=== PATIENT | female | born 1985 | race Caucasian/White ===

== ENCOUNTER 2022-08-29 17:14 | Outpatient (CLI) | payer OTHER, SELFPAY ==
[2022-08-29 13:55] LABS: Cholesterol* 204 mg/dL (90-199); Glucose* 95 mg/dL (60-115); HDL Cholesterol* 55 mg/dL (>=50); LDL Cholesterol Calculated 134 mg/dL (<100); Triglycerides* 73 mg/dL (40-149)
== END 2022-08-29 17:15 | disposition home or self-care (01) ==
PROVIDERS: PCP Physician Assistant Medical; Visit Provider Emergency Medicine
DX: Z13.1 Encounter for screening for diabetes mellitus (principal); Z13.6 Encounter for screening for cardiovascular disorders
CPT/HCPCS: 80061; 82947

== ENCOUNTER 2024-05-24 08:42 | Outpatient (CLI) | payer OTHER, SELFPAY | END 2024-05-24 08:43 | disposition home or self-care (01) | PROVIDERS: PCP Family Medicine; Visit Provider Family Medicine | DX: Z13.220 Encounter for screening for lipoid disorders (principal); Z13.228 Encounter for screening for other metabolic disorders; Z11.59 Encounter for screening for other viral diseases | CPT/HCPCS: 80053; 80061; 86803 ==

== ENCOUNTER 2024-08-31 07:57 | Outpatient (CLI) | payer OTHER, SELFPAY | END 2024-08-31 07:58 | disposition home or self-care (01) | LOC: MAMMO 07:58 | PROVIDERS: PCP Family Medicine; Visit Provider Family Medicine | DX: Z12.31 Encounter for screening mammogram for malignant neoplasm of breast (principal); R92.333 Mammographic heterogeneous density, bilateral breasts | CPT/HCPCS: 77063; 77067 ==

== ENCOUNTER 2025-04-18 15:30 | Outpatient (RCR) | payer OTHER, SELFPAY ==
--- NOTE | 2025-04-13 16:05 | PT.OPDN ---
PT [place] [facility] Daily Note PT [facility] Daily Note Start: 03/14/25 12:39 Freq: Status: Active Protocol: Document 04/13/25 15:21 CJT (Rec: 04/13/25 16:04 CJT [email or web address]) E-signed By Carroll Larson, PT PT OP Daily Progress Note Visit Information Note Type Recert/Progress Note Visit Number [id number] Physician Authorized eval and treat Visits Insurance Information Recert Due Date 06/12/25 Insurance Name [employer] Medical Diagnosis chronic neck pain Treating Diagnosis M54.2 - Cervicalgia Imaging Report X-Ray - Cervical Spine - 03/13/25 Information Mild disc space narrowing and spurring C5-6. No fracture. Facet joints normal. Lung apices clear. Referring MD Waite, [place] CASTRO; PCP: Luis Mccollum Subjective Preferred Name Sherley Subjective Pt reports she was super sore following last treatment session. Continues to rate overall improvement as 30%. Pain Comments Worst: -03/29 Average: 5-12/27 Right now: Home Exercise Home Exercise Access Code: [email or web address] Comments URL: [email or web address] Date: 03/14/2025 Prepared by: Carroll Larson Exercises - Supine Chin Tuck - 1 x daily - 7 x weekly - 2 sets - 10 reps - 3 seconds hold - Sidelying Cervical Sidebending - 1 x daily - 7 x weekly - 2 sets - 10 reps - Seated Cervical Sidebending Stretch - 1-2 x daily - 7 x weekly - 1 sets - 30 seconds hold - Doorway Pec Stretch at 90 Degrees Abduction - 1-2 x daily - 7 x weekly - 1 sets - 30 seconds hold - Shoulder Internal Rotation with Resistance - 1 x daily - 2 x weekly - 2 sets - 20 reps - Shoulder External Rotation with Anchored Resistance - 1 x daily - 2 x weekly - 2 sets - 20 reps Objective Other/Pertinent Cervical AROM Objective R/L Side Bend - R/L Rotation - 51/65 Functional Test NDI - 32% disability Performed & Score Patient Instructed Yes in Risks/Benefits Therapeutic Exercise Therapeutic Exercise 10 Minutes (minutes) Therapeutic Exercise Seated cervical rotation mobilizations with towel 2 x : To Restore 10 ea, 3 hold Functional Status Seated cervical side bending mobilizations with towel 2 x 10 ea, 3 hold Manual Therapy Techniques Manual Therapy 28 Minutes (minutes) Manual Therapy STM performed to Bilateral suboccipitals, cervical Techniques paraspinals, scalenes, SCM, upper trapezius, levator scapulae, pectoralis minor, pectoralis major to reduce tissue tension and improve extensibility. Gentle manual distraction to further reduce tissue tension. Treatment Minutes Timed Code Treatment 38 Minutes Total Treatment Time 38 Billing Units Manual Therapy Units 2 Mechanical Traction 1 Units Assessment/Impression Assessment/ Sherley has failed to make adequate progress up to this Impression point. She rates her overall improvement in her symptoms as 30% at this time. She has had periods of excellent improvement in her cervical AROM, but this is usually short lived, and measured following mobilizations to the cervical spine. I do think exploring other options would be in Sherley's best interest at this point, including MRI of the cervical spine nad potential consult for injection if necessary. I would like to see Sherley for several follow-ups sessions to attempt dry needling of the upper trapezius bilaterally and follow-up on new exercises. Recommend continued PT services to address deficits and return pt to highest level of function. Primary Functional turning head, looking up/down, sleeping Limitations Plan of Care Physical Therapy STG - To be completed in 2-3 weeks: Goals 1. Pt will demonstrate improved cervical strength to 5/ 5 MMT in all directions to provide greater support to cervical spine and head. 2. Pt will report reduction in neck pain by factor of 2 so that they may roll over in bed without waking due to pain. 3. Pt will demo 5/5 MMT for empty can testing bilaterally without pain as indication of reduced RTC impingement. LTG - To be completed in 6-8 weeks: 1. Pt to be I with HEP so that they may I manage progression of symptoms. 2. Pt will demo full and pain free cervical rotation ROM and lateral flexion ROM so that they may look over shoulder while driving to watch for traffic. 3. Pt will report absence of neck pain with all activities so that they may return to participating in recreational activities with their friends and family. 4. Pt will report ability to sleep throughout the night without waking due to pain so that they may wake well rested with reduced mental fatigue during working hours . Daily Plan of Care Continue per POC
== END 2025-06-27 08:58 | disposition home or self-care (01) ==
PROVIDERS: PCP Family Medicine; Visit Provider Family Medicine
DX: M54.2 Cervicalgia (principal); G89.29 Other chronic pain; Z51.89 Encounter for other specified aftercare
CPT/HCPCS: 97012; 97110; 97140; 97161

== ENCOUNTER 2025-05-01 17:56 | Outpatient (CLI) | payer OTHER, SELFPAY ==
--- NOTE | 2025-05-01 18:15 | CRLHL7_ITS ---
For Patients: As a result of the Century Cures Act, medical imaging exams and procedure reports are released immediately into your electronic medical record. You may view this report before your referring provider. If you have questions, please contact your health care provider. INDICATION : Cervicalgia. TECHNIQUE : Cervical spine MRI without contrast. COMPARISON: COMPARISONCervical spine radiographs from 03/13/2025. FINDINGS: Straightening of the typical cervical lordotic curvature. No recent compression fracture or marrow replacing process. Posterior fossa structures are normal. Cervical cord signal is normal. No extraspinal soft tissue abnormalities. Discs/Endplates: Mild disc height loss/disc desiccation C5-6. Disc dehydration C6-7. Remaining discs are within normal limits. Findings at individual levels as follows: Craniocervical junction: Alignment is maintained. C2-C3: No spinal canal or neural foraminal stenosis. C3-C4: Right uncovertebral and facet arthrosis with mild right neural foraminal stenosis. No left neural foraminal stenosis or spinal canal stenosis. C4-C5: Trace anterolisthesis. Shallow central protrusion flattens the thecal sac. Left-sided facet arthrosis. No spinal canal or neural foraminal stenosis. C5-C6: Broad-based disc osteophyte complex which contacts the ventral cord. Mild spinal canal stenosis. Bilateral uncovertebral arthrosis with mild bilateral foraminal stenosis. C6-C7: Right central protrusion which contacts the ventral cord. Mild spinal canal stenosis. No neural foraminal stenosis. C7-T1: No spinal canal or neural foraminal stenosis. T1-2: No spinal canal or neural foraminal stenosis. IMPRESSION: 1. No acute fracture or marrow replacing process. 2. Scattered cervical spondylosis without high-grade spinal canal/neural foraminal stenosis or perfecto compression of neural structures. 3. C5-6 and C6-7 mild spinal canal stenosis with disc material contacting the cord at both of these levels. Dictated by Antonio Pierson MD @ 05/02/2025 12:36:09 PM (Electronically Signed)
--- NOTE | 2025-05-02 12:47 | ED.GENADULT ---
HPI - General Adult Related Data Previous Rx's ?Medication ?Instructions ?Recorded escitalopram oxalate 20 mg tablet 20 mg PO QDAY #90 tabs 04/20/25 Allergies Allergy/AdvReac Type Severity Reaction Status Date / Time No Known Drug Allergies Allergy Verified 04/24/25 12:56 PFSH [facility] Medical History (Updated 05/24/24 @ 09:05 by Sydni Mccollum MD) Migraine ?G43.909 - Migraine, unspecified, not intractable, without status migrainosus (ICD-10) Urticaria ?L50.9 - Urticaria, unspecified (ICD-10) Surgical History (Updated 04/25/22 @ 09:42 by Ghislaine Adams ~ PSR) History of section (06/26/09) ?Z98.891 - History of uterine scar from previous surgery (ICD-10) Family History (Updated 08/19/22 @ 17:09 by Chayo Gallagher MD) Mother Early menopause High blood pressure Thyroid disease Maternal Grandmother Early menopause Son Long Q-T syndrome Social History Narrative: 2 children: 1 stepson Non tobacco user What is your current living situation?: I presently have a place to live Problems where you live: no known problems In the past 12 months, utilities in danger of being shut off: no In past 12 months, lack of transportation kept you from medical appts, meetings, work, or getting things needed for daily living: no In the past 12 mos, have been you worried that your food would run out before you had money to buy more?: never true In the past 12 mos, the food you bought just didn't last and you didn't have money to buy more?: never true Smoking Status: Former smoker How often does anyone, including family, friends and others, physically hurt you: never How often does anyone, including family, friends and others, insult or talk down to you: never How often does anyone, including family, friends and others, threaten you with harm: never How often does anyone, including family, friends and others, scream or curse at you: never Discharge Plan Discharge Disposition: Home, Self-Care Primary Care Provider: Sydni Mccollum Discharge Medications: No Action escitalopram oxalate 20 mg tablet 20 mg PO QDAY Qty: 90 3RF
== END 2025-05-01 17:57 | disposition home or self-care (01) ==
LOC: MRI 17:57
PROVIDERS: PCP Family Medicine; Visit Provider Family Medicine
DX: M54.2 Cervicalgia (principal); M47.892 Other spondylosis, cervical region; M48.02 Spinal stenosis, cervical region
CPT/HCPCS: 72141; 99281